=== PATIENT | female | born 1995 | race Caucasian/White ===

== ENCOUNTER 2017-03-09 16:07 | Emergency (ER) | payer BC ==
[~2017-03-09] VITALS: Ht 167.6 cm; Wt 54.4 kg
[2017-03-09 17:10] LABS: APPEARANCE,URINE Clear (CLEAR); BILIRUBIN,URINE Negative (NEGATIVE); BLOOD, URINE Negative Ery/uL (NEGATIVE); COLOR,URINE Yellow (YELLOW); KETONES,URINE Negative (NEGATIVE); LEUKOCYTE ESTERASE ,URINE Small (NEGATIVE); NITRITE, URINE Negative (NEGATIVE); PROTEIN,URINE Negative (NEGATIVE); UGLUCOSE Negative (NEGATIVE); UROBILINOGEN,URINE 0.2 EU/dL (0.2)
[2017-03-09 17:11] LABS: PREGNANCY TEST URINE QUAL NEGATIVE (NEGATIVE)
[2017-03-09 17:25] LABS: BACTERIA,URINE Few /HPF (None Seen); RBC,URINE 0-2 /HPF (0-2); SQUAMOUS EPITHELIAL CELL,UR Moderate /HPF (None Seen)
[2017-03-09 18:05] VITALS: BP 107/68
== END 2017-03-09 18:07 | disposition home or self-care (01) ==
LOC: ER 16:09
DX: N76.0 Acute vaginitis (principal); F31.9 Bipolar disorder, unspecified; R25.1 Tremor, unspecified; Z88.1 Allergy status to other antibiotic agents
CPT/HCPCS: 81000-TC; 84703-TC; 87081-TC; 87086-TC; 87110-TC; 87210-TC; A4606; Z7610

== ENCOUNTER 2019-01-24 14:19 | Emergency (ER) | payer BC ==
[~2019-01-24] VITALS: Ht 165.1 cm; Wt 47.6 kg
[2019-01-24 14:21] VITALS: BP 103/69
[2019-01-24] MEDS ORDERED: LIDOCAINE HCL/MPF 1% 30 ML VIAL IJ ONE (14:53)
[2019-01-24] MEDS ORDERED: TDAP [DIPH/PERTUSSIS/TET] 0.5 ML VIAL IM ONE ×2 (14:53→15:00)
[2019-01-24] MEDS ORDERED: LIDOCAINE HCL/PF 1% 30 ML VIAL TP ONE (15:00)
[2019-01-24] MEDS ORDERED: LORAZEPAM 1 MG TABLET ONE (15:18)
[2019-01-24] MEDS ORDERED: LORAZEPAM 1 MG TABLET PO ONE (15:30)
== END 2019-01-24 16:52 | disposition home or self-care (01) ==
LOC: ER 14:19
DX: S51.812A Laceration without foreign body of left forearm, initial encounter (principal); R25.1 Tremor, unspecified; F31.9 Bipolar disorder, unspecified; F41.9 Anxiety disorder, unspecified; Z88.1 Allergy status to other antibiotic agents; W01.0XXA Fall on same level from slipping, tripping and stumbling without subsequent striking against object, initial encounter; Y93.89 Activity, other specified; Y92.89 Other specified places as the place of occurrence of the external cause; Y99.8 Other external cause status
CPT/HCPCS: 12002; 90471; 90715; 99283; J3490